=== PATIENT | female | born 1990 | race Caucasian/White ===

== ENCOUNTER 2018-11-11 22:46 | Emergency (ER) | payer MEDICAID, SELFPAY ==
[2018-11-11 22:46] VITALS: BP 123/81; PULSE 118; RESP 15; TEMP 36.5; BMI 23.6
--- NOTE | 2018-11-12 00:10 | ED.VIS.GEN ---
History of Present Illness Chief Complaint: Dental Informant: Patient Narrative: She stated she had a blister in her right upper molar that broke open. She does not have any major pain. She is never had that before. She is on no blood thinners. She does have a bad tooth in that region. She has not seen a dentist for it. It is no longer bleeding. She said the blister was much larger and is now very tiny. Current severity is mild. Past Medical History - Allergies and Home Meds Allergies/Adverse Reactions: Allergies No Known Allergies Allergy (Verified 12/15/14 11:28) Primary Care Physician: Care Physician,No Primary [Primary Care Provider] - Prior records reviewed: Yes Past Medical History: None Surgical History: noncontributory, - - 2 C-sections Lives: With Family Smoking Status: Former smoker Alcohol: None Drugs: None Review of Systems General: Denies: Chills, Fever, Sweats Eyes: Denies: Visual changes - bilaterally, Diplopia ENT: Reports: - - HPI. Denies: Rhinorrhea, Sore throat Cardiovascular: Denies: Chest pain, Palpitations Respiratory: Denies: Dyspnea, Cough, Dyspnea on exertion Gastrointestinal: Denies: Abdominal pain, Nausea, Vomiting, Diarrhea, Melena, Hematochezia Genitourinary: Denies: Dysuria, Hematuria, Frequency Musculoskeletal: Denies: Back pain, Extremity Pain Skin: Denies: Rash, Wounds Neurological: Denies: Headache, Weakness, Numbness Physical Exam Vital Signs/Narrative: Vital Signs Temp Pulse Resp BP 11/11/18 22:46 97.7 F L 118 H 15 123/81 H General: Well nourished, Well developed, No Acute Distress Head: Normocephalic, Atraumatic Eyes: Perrl, EOMI ENT: Moist mucous membranes, No rhinorrhea, - - Internal exam. Her right upper posterior molar had a very small blood blister that is completely resolved. It is likely secondary to an infected tooth. There is no abscess to the gum. It is mildly tender. No active bleeding. Neck: Supple, Nontender Cardiovascular: Regular rate, Regular rhythm, No murmurs Respiratory: No distress, CTA bilaterally, Chest nontender Abdomen: Soft, Nontender, Nondistended, Normal bowel sounds Back: Nontender, Normal Inspection Extremities: Nontender, No edema Skin: Normal color, No rash Neurological: Alert, Oriented x3, Cranial nerves II-XII grossly intact, Normal Strength, Normal Sensation Psychological: Normal affect, Normal Mood Diagnostic/Tx/Re-eval - Medical Decision Making Patient reassured. At this time she likely has a pulpitis with a blood blister. She will follow-up with dentistry. She will use pressure if it bleeds again. Started on amoxicillin ED Disposition - Plan for ED Patient: Disposition: Home or Assisted Living Diagnosis: Periapical abscess Instructions: Dental Abscess Prescriptions: Amoxicillin 500 mg PO TID #21 tab Referrals: Care Physician,No Primary [Primary Care Provider] - Ritesh Lyons DO [NON CLINICAL AFFILIATE] -
[2018-11-12] MEDS: AMOXICILLIN 500 MG CAPSULE PO (00:24)
[2018-11-12 00:28] VITALS: BP 123/68; PULSE 78; RESP 16; O2SAT 98
== END 2018-11-12 00:29 | disposition home or self-care (01) ==
PROVIDERS: Emergency Provider Emergency Medicine
DX: K04.7 Periapical abscess without sinus (principal); Z87.891 Personal history of nicotine dependence
CPT/HCPCS: 99283

== ENCOUNTER → 2019-09-27 | Outpatient (CLI) | payer OTHER, MEDICAID, SELFPAY ==
--- NOTE | 2019-09-27 13:14 | US_ITS ---
STUDY: ULTRASOUND OF THE FEMALE PELVIS - COMPLETE REASON FOR EXAM: Female, 29 years old. IUD PLACEMENT - PT UNABLE TO FIND STRING LMP: 09/11/2019 TECHNIQUE: Transabdominal TECHNICAL QUALITY: Adequate. COMPARISON: None. FINDINGS: The uterus is anteverted and is in a midline position. The uterus measures 8.3 x 5.3 x 3.1 cm. Normal uterine cervix. The endometrium measures 2.4 mm in thickness, and is hyperechoic. There is no demonstrated endometrial mass. There is no demonstrated myometrial mass. I.U.D. - The patient does have an I.U.D. IUD noted in satisfactory position The right ovary is visualized. The right ovary measures 2.4 x 1.7 x 1.4 cm. There is no right ovarian cyst or ovarian mass. There is no visualized right adnexal mass or complex lesion. There is normal arterial and normal venous vascularity. The left ovary is visualized. The left ovary measures 2.3 x 2.1 x 2.9 cm. There is no left ovarian cyst or ovarian mass. There is no visualized left adnexal mass or complex lesion. There is normal arterial and normal venous vascularity. There is no fluid in the cul-de-sac. The bladder is sonographically normal US/Pelvic (Non ) IMPRESSION: Normal female pelvis. IUD noted in satisfactory position Electronically Signed: Louis Armstrong MD at 14:56 EST , Service support ,
== END | disposition home or self-care (01) ==
PROVIDERS: Referring Provider Obstetrics & Gynecology; Visit Provider Obstetrics & Gynecology
DX: Z30.431 Encounter for routine checking of intrauterine contraceptive device (principal)
CPT/HCPCS: 76856

== ENCOUNTER → 2019-10-02 | Outpatient (CLI) | payer OTHER, MEDICAID, SELFPAY | END | disposition home or self-care (01) | PROVIDERS: Referring Provider Obstetrics & Gynecology; Visit Provider Obstetrics & Gynecology | DX: Z12.4 Encounter for screening for malignant neoplasm of cervix (principal); Z11.3 Encounter for screening for infections with a predominantly sexual mode of transmission ==

== ENCOUNTER → 2020-01-03 | Outpatient (CLI) | payer OTHER, MEDICAID, SELFPAY ==
[2020-01-10 00:32] LABS: HPV Reflexed? NOT INDICATED
== END | disposition home or self-care (01) ==
LOC: LABSPEC 14:01
PROVIDERS: Referring Provider Obstetrics & Gynecology; Visit Provider Obstetrics & Gynecology
DX: R87.615 Unsatisfactory cytologic smear of cervix (principal)
CPT/HCPCS: 88175; G0145

== ENCOUNTER 2020-02-11 17:27 | Emergency (ER) | payer MEDICAID, SELFPAY ==
[2020-02-11 17:29] VITALS: BP 119/81; PULSE 100; RESP 16; TEMP 36.4; O2SAT 98; BMI 24.7
--- NOTE | 2020-02-11 18:27 | US_ITS ---
STUDY: ABDOMINAL ULTRASOUND - RIGHT UPPER QUADRANT REASON FOR VISIT: Female, 29 years old. Right upper quadrant pain TECHNIQUE: Ultrasound evaluation of the right upper quadrant was performed with real-time and static york-scale imaging. TECHNICAL QUALITY: Adequate. COMPARISON: None. FINDINGS: Liver: The liver measures 17.5 cm. There is normal echogenicity of the liver. The bile ducts are within normal limits. There is hepatic color flow. The direction of portal flow is hepatopetal. There is no demonstrated mass lesion. Gallbladder: Normal distended gallbladder. The gallbladder wall measures 3 mm. There is a negative sonographic Allen''s sign. There is no pericholecystic fluid. There are multiple echogenic structures within the gallbladder, consistent with multiple gallstones. Common Bile Duct (C.B.D.): The common bile duct measures 3 mm. Pancreas: Normal size of the head, body and tail of the pancreas. There is normal echogenicity of the pancreas. There is no demonstrated pancreatic mass or cyst. Right Kidney: Normal size of the right kidney. The right kidney measures 10.5 cm. Normal renal cortex. There is no demonstrated renal mass or cyst. There is no right hydronephrosis. US/Gallbladder IMPRESSION: Cholelithiasis without sonographic evidence of acute cholecystitis. Electronically Signed: Steve Hastings, at 20:05 EDT Tel , Service support ,
--- NOTE | 2020-02-11 18:28 | ED.DCSUM_ITS ---
History of Present Illness Chief Complaint: Abd Pain Informant: Patient - Abdominal Pain/Flank Pain Onset: Weeks - 1 Context: Gradual Onset Timing: Continuous, Waxes and wanes Quality: Aching, Cramping Location: Epigastric, RUQ Current Severity: Moderate Maximum Severity: Severe Worsened by: Food Relieved by: - - after BM sometimes - Nausea/Vomiting/Emesis GI Symptom: Negative for: Nausea, Vomiting - Diarrhea/Melena/Hematochezia GI Symptom: Negative for: Diarrhea, Melena, Hematochezia Associated Symptoms: Negative for: Dysuria, Frequency, Hematuria, Urgency Narrative: Patient has been having waxing and waning abdominal discomfort for the past week, states that sometimes it is worse 1 or 2 hours after eating and sometimes gets better after she has a bowel movement which are otherwise normal. She has not been constipated but tried some laxatives to see if maybe that would clean things out and help but it has not seemed to make a difference. She denies any itching, fever, jaundice. The discomfort seems to mostly be epigastric and right upper quadrant. She states she has had an unusually long menstrual cycle that has lasted 8 days and currently still present and started around the same time and started a week early compared with usual. She denies any other vaginal discharge and the bleeding is not severe. Past Medical History - Allergies and Home Meds Allergies/Adverse Reactions: Allergies No Known Allergies Allergy (Verified 02/11/20 17:31) Primary Care Physician: Gatito Aceves MD [STAFF PHYSICIAN] - (call for appt) Past Medical History: None Surgical History: noncontributory, - - 2 C-sections Smoking Status: Former smoker Drugs: None - Family History Maternal Family History: Reports: - - gallstones -- mother Review of Systems General: Denies: Chills, Fever, Sweats Eyes: Denies: Visual changes - bilaterally, Diplopia ENT: Denies: Rhinorrhea, Sore throat Cardiovascular: Denies: Chest pain, Palpitations Respiratory: Denies: Dyspnea, Cough, Dyspnea on exertion Gastrointestinal: Reports: Abdominal pain. Denies: Nausea, Vomiting, Diarrhea, Melena, Hematochezia Genitourinary: Denies: Dysuria, Hematuria, Frequency Musculoskeletal: Reports: Back pain. Denies: Neck pain, Swelling, Extremity Pain Skin: Denies: Rash, Wounds Neurological: Denies: Headache, Weakness, Numbness Physical Exam Vital Signs/Narrative: Vital Signs Temp Pulse Resp BP Pulse Ox 02/11/20 17:29 97.6 F L 100 16 119/81 H 98 Inital Vital Signs reviewed: Yes General: Well nourished, Well developed, No Acute Distress Head: Normocephalic, Atraumatic Eyes: Perrl, EOMI ENT: Moist mucous membranes, No rhinorrhea Neck: Supple, Nontender Cardiovascular: Regular rate, Regular rhythm, No murmurs Respiratory: No distress, CTA bilaterally, Chest nontender Abdomen: Soft, Nondistended, Normal bowel sounds, No masses, Tender. Negative for: Guarding, Rebound tenderness, Allen's sign Back: Nontender, Normal Inspection. Negative for: CVA tenderness Extremities: Nontender, No edema. Negative for: Calf Tenderness Skin: Normal color, No rash, No Trauma Neurological: Alert, Oriented x3, Cranial nerves II-XII grossly intact, Normal Strength, Normal Sensation Psychological: Normal affect, Normal Mood Diagnostic/Tx/Re-eval Impressions Gallbladder Ultrasound 02/11/20 18:27 IMPRESSION: Cholelithiasis without sonographic evidence of acute cholecystitis. Electronically Signed: Steve Venkata, at 20:05 EDT Tel , Service support , 02/11/20 18:27 Gallbladder [US] Stat Laboratory Results 02/11/20 02/11/20 02/11/20 19:15 19:15 19:15 WBC 9.1 RBC 3.92 L Hgb 11.8 L Hct 36.4 L MCV 92.9 MCH 30.1 MCHC 32.4 RDW Std Deviation 41.9 RDW Coeff of Christiano 12.2 Plt Count 311 MPV 10.6 Immature Gran % (Auto) 0.300 Neut % (Auto) 79.3 H Lymph % (Auto) 12.4 L Bull[place] % (Auto) 6.5 Eos % (Auto) 1.1 Baso % (Auto) 0.4 Absolute Neuts (auto) 7.2 Absolute Lymphs (auto) 1.13 Nucleated RBC % 0 Sodium 140 Potassium 3.5 Chloride 105 Carbon Dioxide 28.0 Anion Gap 7 BUN 6 L Creatinine 0.95 Estim Creat Clear Calc 69.73 Est GFR (MDRD) Af Amer 90 Est GFR (MDRD) Non-Af 74 BUN/Creatinine Ratio 6.3 L Glucose 86 Calcium 9.3 Total Bilirubin 0.30 AST 18 ALT 17 Alkaline Phosphatase 69 Total Protein 7.9 Albumin 3.5 Globulin 4.4 H Albumin/Globulin Ratio 0.8 L Lipase 77 Serum , Qual NEGATIVE Urine Color Urine Clarity Urine pH Ur Specific [place] Urine Protein Urine Glucose (UA) Urine Ketones Urine Occult Blood Urine Nitrite Urine Bilirubin Urine Urobilinogen Ur Leukocyte Esterase Urine RBC Urine WBC Ur Squamous Epith Cells Urine Bacteria Urine Mucus 02/11/20 19:15 WBC RBC Hgb Hct MCV MCH MCHC RDW Std Deviation RDW Coeff of Christiano Plt Count MPV Immature Gran % (Auto) Neut % (Auto) Lymph % (Auto) [place] % (Auto) Eos % (Auto) Baso % (Auto) Absolute Neuts (auto) Absolute Lymphs (auto) Nucleated RBC % Sodium Potassium Chloride Carbon Dioxide Anion Gap BUN Creatinine Estim Creat Clear Calc Est GFR (MDRD) Af Amer Est GFR (MDRD) Non-Af BUN/Creatinine Ratio Glucose Calcium Total Bilirubin AST ALT Alkaline Phosphatase Total Protein Albumin Globulin Albumin/Globulin Ratio Lipase Serum , Qual Urine Color Yellow Urine Clarity Sl. Cloudy Urine pH 8.0 Ur Specific [place] 1.010 Urine Protein Negative Urine Glucose (UA) Normal Urine Ketones Negative Urine Occult Blood Negative Urine Nitrite Negative Urine Bilirubin Negative Urine Urobilinogen Normal Ur Leukocyte Esterase 25 H Urine RBC 0 SEEN Urine WBC 0-5 SEEN Ur Squamous Epith Cells 0-5 SEEN Urine Bacteria 0 SEEN Urine Mucus 0 SEEN - Medical Decision Making Patient declined the Toradol that was ordered, and did not want anything for pain, she was gradually feeling better. Her work-up shows gallstones, but she has no signs of acute cholecystitis on the imaging, and her labs are normal including liver enzymes and lipase. Her symptoms are likely due to the gallstones. I discussed with Dr. Aceves, who is happy to follow-up with her as an outpatient. I gave her instructions regarding nonfat diet as much as possible, she is comfortable with that plan following up. ED Disposition - Plan for ED Patient: Disposition: Home or Assisted Living Diagnosis: Biliary colic, Cholelithiasis Instructions: ED Low Fat Diet, ED Gallstones with Biliary Colic Referrals: Gatito Aceves MD [STAFF PHYSICIAN] - As soon as possible (call in a.m. for appt)
[2020-02-11 19:20] LABS: Bacteria 0 SEEN /hpf (None Seen); Mucous, Urine 0 SEEN /hpf (<or=2+); Red Blood Cells-Urine 0 SEEN /hpf (0-5)
[2020-02-11 19:24] LABS: Absolute Lymphocyte Count 1.13 X10^3/uL (0.83-4.51); Absolute Neutrophil Count 7.2 X10^3/uL (2.0-7.7); Basophil# 0.04 X10^3/uL; Basophil% 0.4 % (0-1); Eosinophils% 1.1 % (0-5); Hematocrit 36.4 % (37-47); Hemoglobin 11.8 g/dL (12.0-15.0); Lymphocyte # 1.13 X10^3/ul (4.0); Lymphocyte % 12.4 % (19-41); Mean Corp Hgb Conc 32.4 g/dL (32-36); Mean Corpuscular Hgb 30.1 pg (27.0-32.0); Mean Corpuscular Volume 92.9 fL (81-99); Mean Platelet Vol. 10.6 fl (6.2-12.0); Monocyte# 0.59 X10^3/uL; Monocyte% 6.5 % (0-10); NRBC Flagged by Analyzer 0 % (0-5); Neutrophil # 7.22 X10^3/uL (2.7-7.7); Neutrophil % 79.3 % (47-70); Platelet Count 311 K/mm3 (150-450); RBC Distribution Width CV 12.2 % (11.6-14.6); RBC Distribution Width SD 41.9 fl (35.1-43.9); Red Blood Count 3.92 M/mm3 (4.2-5.4); White Blood Count 9.1 K/mm3 (4.4-11.0)
[2020-02-11 19:25] LABS: Color, Urine Yellow (Yellow); Glucose, Dipstick Normal (Normal); Ketone-Dipstick Negative (Negative); Leukocyte Esterase-Dipstick 25 /ul (Negative); Nitrite-Dipstick Negative (Negative); Occult Blood-Urine Negative /ul (Negative); Protein-Dipstick Negative (Negative); Urine Bilirubin Dipstick Negative (Negative); Urine Clarity Sl. Cloudy (Clear); Urine Urobilinogen Normal (Normal)
[2020-02-11 19:31] LABS: Squamous Epithelial Cells - UA 0-5 SEEN /hpf (5-10); White Blood Cells 0-5 SEEN /hpf (0-5)
[2020-02-11 19:32] LABS: Internal QC Validated? YES +Cl - CLEAR BKGD; Pregnancy, Serum, hCG Quali. NEGATIVE Negative
[2020-02-11 19:39] LABS: ALB/GLOB Ratio 0.8 RATIO (0.9-2.4); AST(SGOT) 18 U/L (15-37); Alanine Aminotransfer ALT/SGPT 17 U/L (13-56); Albumin, Serum 3.5 g/dL (3.2-5.0); Alkaline Phosphatase 69 U/L (45-117); Anion Gap 7 (5-15); BUN 6 mg/dL (7-18); BUN/Creat Ratio 6.3 RATIO (10-20); Calcium,Total 9.3 mg/dL (8.5-10.1); Chloride 105 mmol/L (98-107); Creatinine, Serum 0.95 mg/dL (0.55-1.02); EST Glomerular Filtration Rate 74 mL/min (>60); Est Glom Filt Rate - Afr Amer 90 mL/min (>60); Estimated Creatinine Clearance 69.73 ml/min; Globulin 4.4 g/dL (2.2-4.2); Glucose 86 mg/dL (74-106); Lipase 77 U/L (73-393); Potassium 3.5 mmol/L (3.5-5.1); Protein, Total 7.9 g/dL (6.4-8.2); Sodium Level 140 mmol/L (136-145)
[2020-02-11 21:50] VITALS: BP 108/67; PULSE 91; RESP 16; O2SAT 97
== END 2020-02-11 21:50 | disposition home or self-care (01) ==
PROVIDERS: Emergency Provider Emergency Medicine
DX: K80.70 Calculus of gallbladder and bile duct without cholecystitis without obstruction (principal); Z87.891 Personal history of nicotine dependence
CPT/HCPCS: 76705; 80053; 81001; 83690; 84703; 85025; 99283; A4216

== ENCOUNTER 2020-02-13 07:29 | Inpatient (IN) | payer OTHER, MEDICAID, SELFPAY ==
[2020-02-12 14:10] VITALS: BMI 24.7
[2020-02-13] VITALS (9 sets, daily range): BP systolic 95–111; BP diastolic 56–72; PULSE 72–92; RESP 16–18; TEMP 36.3–37.2; O2SAT 96–100; BMI 24.6; BMI 25.9
--- NOTE | 2020-02-13 07:57 | ED.VISSUMM ---
- ER Visit Summary Date of Service: 02/13/20 Chief Complaint: Abdominal pain History of Present Illness: The patient is a 29 F who presents with ongoing abdominal pain. She was seen in this ED 2 days ago and diagnosed with gallstones. She did not have cholecystitis. She was referred to surgery for follow-up and surgery with Dr. Aceves on February 26. She was unable to sleep last night. She was having diffuse abdominal pain. The pain is currently in her right upper quadrant. No fevers, jaundice, or other new issues. Physical Examination: Afebrile and vital signs unremarkable. Patient appears uncomfortable. Right upper quadrant tender to palpation. No guarding or rebound. No jaundice. Otherwise exam unremarkable. Test Results: We will recheck CBC, CMP, lipase, coags. She had a negative serum test on February 10, 2 days ago. This was not repeated. Emergency Department Course and Treatment: Labs ordered as above. Patient treated with morphine and Zofran while awaiting results. She also received IV fluids and was made n.p.o. I contacted Dr. Aceves to let him know she was in the ED. He would like a call back after the labs result. She may need additional imaging pending the results of the labs. CT showed no evidence of stones or cholecystitis. nothing else to explain her pain. she is having continued pain. Dr. Aceves evaluated the patient and will admit for further care. Treatment Plan: As above Disposition: Admit Impression: Abdominal pain This note was generated with picsell dictation software. It may contain incorrect words, spelling, and punctuation that were not noted in review of the chart prior to signing ED Disposition - Plan for ED Patient: Referrals: Care Physician,No Primary [Primary Care Provider] -
[2020-02-13 08:12] LABS: Absolute Lymphocyte Count 1.07 X10^3/uL (0.83-4.51); Basophil# 0.03 X10^3/uL; Basophil% 0.3 % (0-1); Eosinophil# 0.07 X10^3/uL; Eosinophils% 0.8 % (0-5); Hemoglobin 11.4 g/dL (12.0-15.0); Lymphocyte # 1.07 X10^3/ul (4.0); Mean Corp Hgb Conc 32.6 g/dL (32-36); Mean Corpuscular Hgb 30.3 pg (27.0-32.0); Mean Corpuscular Volume 93.1 fL (81-99); Mean Platelet Vol. 10.1 fl (6.2-12.0); Monocyte# 0.71 X10^3/uL; NRBC Flagged by Analyzer 0 % (0-5); Neutrophil # 6.95 X10^3/uL (2.7-7.7); Neutrophil % 78.3 % (47-70); Platelet Count 340 K/mm3 (150-450); RBC Distribution Width CV 12.3 % (11.6-14.6); RBC Distribution Width SD 42.4 fl (35.1-43.9); Red Blood Count 3.76 M/mm3 (4.2-5.4); White Blood Count 8.9 K/mm3 (4.4-11.0)
[2020-02-13] MEDS: Ondansetron 4 MG/2 ML Vial IV ×2 (08:14→17:15)
[2020-02-13] MEDS: Morphine 4 MG/ML Syringe IV ×2 (08:15→10:34)
[2020-02-13] MEDS: 0.9% Normal Saline 1,000 ML 1000 ML IV (08:15)
[2020-02-13 08:30] LABS: ALB/GLOB Ratio 0.7 RATIO (0.9-2.4); AST(SGOT) 13 U/L (15-37); Alanine Aminotransfer ALT/SGPT 15 U/L (13-56); Albumin, Serum 3.4 g/dL (3.2-5.0); Alkaline Phosphatase 69 U/L (45-117); Anion Gap 7 (5-15); BUN 7 mg/dL (7-18); BUN/Creat Ratio 7.9 RATIO (10-20); Calcium,Total 9.4 mg/dL (8.5-10.1); Chloride 104 mmol/L (98-107); Creatinine, Serum 0.89 mg/dL (0.55-1.02); EST Glomerular Filtration Rate 80 mL/min (>60); Est Glom Filt Rate - Afr Amer 97 mL/min (>60); Estimated Creatinine Clearance 74.43 ml/min; Globulin 4.8 g/dL (2.2-4.2); Glucose 91 mg/dL (74-106); International Normalized Ratio 1.1; Lipase 88 U/L (73-393); Partial Thromboplast Time 33.5 Seconds (24.1-36.2); Potassium 3.8 mmol/L (3.5-5.1); Protein, Total 8.2 g/dL (6.4-8.2); Prothrombin Time (Protime)PT. 13.6 SECONDS (11.7-14.9); Sodium Level 138 mmol/L (136-145)
--- NOTE | 2020-02-13 09:03 | CT_ITS ---
STUDY: CT ABDOMEN AND PELVIS WITH CONTRAST REASON FOR EXAM: Female, 29 years old. WORSENING ABD PAIN, KNOWN GALLSTONES, SCHEDULED FOR SURG FEBRUARY 26, HAS IUD RADIATION DOSAGE (If Supplied By Facility): CTDIvol = ( 7.16 ) mGy, DLP = ( 367.51 ) mGycm TECHNIQUE: Transaxial images were obtained from the dome of the diaphragm to the symphysis pubis without oral contrast. IV 100mL Isovue-300 was administered. Sagittal and coronal images were reconstructed. Individualized dose optimization techniques were used for this CT. COMPARISON: Ultrasound from 02/11/2020 FINDINGS: The visualized lung bases are unremarkable. The visualized portions of the heart are within normal limits. Normal liver. Normal gallbladder and extrahepatic biliary system. The recent ultrasound showed evidence of gallstones but there are no demonstrated radiopaque gallstones. Normal spleen. Normal pancreas. Normal bilateral adrenal glands. Normal right kidney. Normal left kidney. Normal visualized stomach. Normal small intestine. Retained stool noted in the colon. There is non-visualization of the appendix. Normal abdominal aorta. Normal inferior vena cava. Normal retroperitoneum. Normal urinary bladder. Uterus contains an IUD. There are bilateral physiologic ovarian cysts. Normal abdominal wall. Normal osseous structures. CT/Abdomen/Pelvis WITH Contrast IMPRESSION: Although the recent ultrasound showed evidence of gallstones, no radiopaque gallstones are present on this CT. Retained stool throughout the colon IUD noted in the uterus. Electronically Signed: Louis Armstrong MD at 9:44 EDT , Service support ,
--- NOTE | 2020-02-13 10:45 | PCM.HP.BLA ---
Problem List (1) Cholelithiasis Status: Acute Qualifiers: Cholelithiasis location: gallbladder Cholecystitis presence: with cholecystitis Cholecystitis acuity: acute Biliary obstruction: without biliary obstruction Qualified Code(s): K80.00 - Calculus of gallbladder with acute cholecystitis without obstruction History and Physical Date of Admission: 02/13/20 [facility] [address] [place] [address] OFFICE VISIT Date of Service: 02/12/20 MR#: [id number] Acct: [id number] Name: JOE MCGRAW Rep #: [id number] : 1990 Provider: Dr. Gatito Aceves MD Age/Sex: 29/F Location: [facility] Status: Signed Intake Vital Signs 02/12/20 Height 5 ft 2 in 02/12/20 Weight: 134 lb 02/12/20 BMI 24.5 02/12/20 BP 100/62 02/12/20 Blood Pressure Location Rt brachial 02/12/20 Position Sitting 02/12/20 Respiration 18 02/12/20 Pulse 104 H 02/12/20 Pulse Source Monitor 02/12/20 Temp 98.2 F 02/12/20 Temp Source Temporal 02/12/20 Pulse Oximetry (%) 982 02/12/20 Oxygen Delivery Method room air Intake Visit Reasons: ER F/U 02/10 Gall Stones Chief Complaint: Cholelithiasis Power Distributor Required: No Is patient in pain?: No Allergies No Known Allergies Allergy (Verified 02/12/20 14:09) Medications NK 02/11/20 [History Confirmed 02/13/20] [facility] Medical History delivery delivered (Acute) 39 weeks gestation of (Acute) Infection associated with retained intrauterine contraceptive device (Acute) Cholelithiasis (Acute) Surgical History History of (Acute) Family History Grandfather Colon cancer Social History (Updated 02/13/20 @ 10:[address] Gatito Aceves MD) Smoking Status: Former smoker alcohol intake: never substance use type: does not use HPI HPI Surgical H&P: Yes HPI: JOE MCGRAW, is a 29 F who presents to the office today for Evaluation of symptomatic cholelithiasis. Patient has been having waxing and waning abdominal discomfort for the past week, states that sometimes it is worse 1 or 2 hours after eating and sometimes gets better after she has a bowel movement which are otherwise normal. She has not been constipated but tried some laxatives to see if maybe that would clean things out and help but it has not seemed to make a difference. She denies any itching, fever, jaundice. The discomfort seems to mostly be epigastric and right upper quadrant. She states she has had an unusually long menstrual cycle that has lasted 8 days and currently still present and started around the same time and started a week early compared with usual. She denies any other vaginal discharge and the bleeding is not severe. She re-presented to the emergency department today with worsening right upper quadrant abdominal pain. Her labs were still normal. I obtained a CAT scan of the abdomen and pelvis this did not show any signs of liver pathology and her gallbladder was slightly distended. ROS General General: No weight change, appetite, fatigue, colon cancer, breast cancer or weakness HEENT HEENT: No difficulty swallowing, eye injury, eye surgery, swollen glands or hoarseness Endo Endocrine: No thyroid disease, diabetes mellitus, thyroid cancer, Hair loss, heat intolerance or cold intolerance Skin Skin: No rash or changing moles Breast Breast: No left breast lump, right breast lump, nipple discharge, breast pain, abnormal mammogram, abnormal US or breast enlargement Musc Musculoskeletal: No back problems, arthritis, rheumatoid arthritis, gout or joint pain Cardio Cardiovascular: No murmur, pacemaker, heart disease, atrial fibrillation, high blood pressure, heart attack, heart stent, palpitations, shortness of breat with exertion or chest pain Psych Psychiatric: No depression, anxiety or hearing voices Resp Respiratory: No shortness of breath, No sleep apnea, No cough, No COPD, No asthma, No emphysema, No wheezing Gastro Gastrointestinal: Yes abdominal pain, No nausea or vomiting, No diarrhea, No constipation, No blood in stool, No acid reflux, No hemorrhoids, No ulcers, Yes gallbladder problem, No black,tarry stools Jimmy Hematologic: No blood thinners, No blood disorders, No bleeding, Yes anemia, No blood clots Neuro Neurologic: No system reviewed and no additional complaints, except as docu, No as per HPI, No abnormal walking, No abnormal hearing, No abnormal movements, No abnormal speech, No behavioral changes, No burning sensations, No confusion, No seizure-like activity, No unsteadiness, No dizziness, No localized weakness, No frequent falls, No headache(s), No lack of coordination, No loss of vision, No memory loss, No numbness, No other visual disturbances, No radiating pain, No restless legs, No sensory deficit, No fainting, No tingling, No tremor(s), No weakness, No other Exam Const General: no acute distress, well developed, well hydrated Orientation: oriented to person, oriented to place, oriented to time [facility] Head: normocephalic, atraumatic Ears: external ears normal Mouth: moist mucous membranes Eyes Sclera: sclerae normal Pupils: normal by confrontation Neck Neck: no lymphadenopathy noted Neck mass: No Thyroid: thyroid normal, symmetrical Chest Chest palpation & inspection: normal inspection of the chest Breast Palpation: No nipple discharge Resp Effort & Inspection: normal respiratory effort Auscultation: clear to auscultation bilaterally Percussion: percussion normal Cardio Rate: regular rate Rhythm: regular rhythm Heart Sounds: no murmurs GI Palpation: soft, no hepatosplenomegaly, no masses, tenderness is worse today. Auscultation: normal bowel sounds Rectal Exam: other Other: Rectal exam deferred. Extrem General: normal to inspection, no clubbing, cyanosis or edema Assessment & Plan Problems 1. Calculus of gallbladder with acute on chronic cholecystitis without obstruction K80.12 2. Abdominal pain, RUQ R10.11 Plan Reviewed the anatomy with the patient and discussed the procedure: laparoscopic cholecystectomy with possible cholangiograms, possible open. Review risks including but not limited to bleeding, infection, hernia, bile leak, retained gallstones requiring another procedure ERCP- Endoscopic Retrograde Cholangiopancreatography, injury to another organ (bile ducts, common bile duct, small bowel, etc.) and conversion to an open procedure. All questions were answered. I believe she probably have hydrops of the gallbladder. We are going to admit her to the hospital and I will do her surgery tomorrow. Coding Level of Care Code Off vis,new,level 3 Diagnoses Calculus of gallbladder with acute on chronic cholecystitis without obstruction K80.12 ??Cholelithiasis location: gallbladder ??Cholecystitis acuity: acute and chronic Abdominal pain, RUQ R10.11 Inpatient E&M: 28965 Init Hosp L3
[2020-02-13] MEDS: Lactated Ringers 1,000 ML 50 ML IV (11:34)
[2020-02-13] MEDS: 0.9% Saline Lock 10 ML Syringe IV (17:07)
[2020-02-13] MEDS: HYDROmorphone 1 MG/ML Syringe IV (17:07)
--- NOTE | 2020-02-13 17:08 | NURSING ---
BP is now 106/66, Hr 92. This nurse will give dilaudid now.
[2020-02-13] MEDS: proMETHazine 25 MG/ML Syringe 12.5 MG IV (20:15)
[2020-02-13] MEDS: Acetaminophen 325 MG Tablet 650 MG PO (20:15)
[2020-02-13] MEDS: Morphine 2 MG/ML Syringe IV (21:22)
[2020-02-14] VITALS (18 sets, daily range): BP systolic 84–120; BP diastolic 48–85; PULSE 65–98; RESP 14–18; TEMP 36.5–37.1; O2SAT 90–100; BMI 25.9
[2020-02-14] MEDS: Morphine 2 MG/ML Syringe IV ×4 (00:37→21:40)
[2020-02-14 04:26] LABS: Internal QC Validated? YES +Cl - CLEAR BKGD; Pregnancy, Urine Negative Negative
--- NOTE | 2020-02-14 05:55 | EKG12_ITS ---
Test Reason : AM EKG Blood Pressure : / mmHG Vent. Rate : 070 BPM Atrial Rate : 070 BPM P-R Int : 146 ms QRS Dur : 096 ms QT Int : 380 ms P-R-T Axes : 060 082 020 degrees QTc Int : 410 ms Normal sinus rhythm with sinus arrhythmia Nonspecific T wave abnormality Abnormal ECG Confirmed by LETICIA NEGRON, AL ([id number]), editorial project manager YAIMA MASON ([id number]) on 02/18/2020 11:17:53 AM Referred By: TERRI Confirmed By:AL KELLY MD
[2020-02-14] MEDS: Lactated Ringers 1,000 ML 150 ML IV (06:49)
[2020-02-14] MEDS: Acetaminophen 325 MG Tablet 650 MG PO ×2 (06:53→18:52)
[2020-02-14] MEDS: Lactated Ringers 1,000 ML 999 ML IV (07:07)
[2020-02-14 07:53] LABS: Mucous, Urine 0 SEEN /hpf (<or=2+); Red Blood Cells-Urine 0 SEEN /hpf (0-5)
[2020-02-14 07:57] LABS: Color, Urine Straw (Yellow); Glucose, Dipstick Normal (Normal); Ketone-Dipstick Negative (Negative); Leukocyte Esterase-Dipstick 25 /ul (Negative); Nitrite-Dipstick Negative (Negative); Occult Blood-Urine Negative /ul (Negative); Protein-Dipstick Negative (Negative); Urine Bilirubin Dipstick Negative (Negative); Urine Clarity Clear (Clear); Urine Urobilinogen Normal (Normal)
[2020-02-14 08:06] LABS: White Blood Cells 0-5 SEEN /hpf (0-5)
[2020-02-14 08:07] LABS: Bacteria 1+ /hpf (None Seen); Squamous Epithelial Cells - UA 0-5 SEEN /hpf (5-10)
--- NOTE | 2020-02-14 08:31 | NURSING ---
BP 107/68 after bolus and prior to IV morphine. pt denies feeling dizzy. rating pain 7/10.
[2020-02-14] MEDS: 0.9% Saline Lock 10 ML Syringe IV (08:32)
--- NOTE | 2020-02-14 11:20 | GALL_PTH ---
PATIENT: JOE MCGRAW LOC: MS3 U#:[id number] AGE/SX: 29/F ROOM: MS312 RE02/13/[address]: Dr. Gatito Aceves MD : 1990 BED: 1 DIS: 02/15/2020 SPEC #: [id number] RECD: 02/14/20 13:01 STATUS: MADELEINE REQ #: [id number] TONY: 02/14/20 11:[address]: Gatito Aceves DEPT: SURGICAL PATHOLOGY RECD BY: Júnior Siddiqi ENTERED: 02/17/20 08:35 SP TYPE: ANGEL ELIZONDO DR: No Primary Care Phys Tissues: Gallbladder, NOS Procedures: Surgery Specimen Level III HEADER OPERATION: Laparoscopic cholecystectomy PRE-OP DIAGNOSIS: Calculus of gallbladder; cholecystitis; abdominal pain TISSUE SUBMITTED: Gallbladder MICROSCOPIC DIAGNOSIS Gallbladder, cholecystectomy: Chronic cholecystitis and cholelithiasis. SJ:kevon 6/30/20 MICROSCOPIC DESCRIPTION Slides are reviewed. GROSS DESCRIPTION Received is one container labeled with the patient's name and designated gallbladder. The specimen consists of a gallbladder measuring 9 cm in length and up to 4 cm in diameter. The external surface is pink-gomez, smooth and glistening for the most part. Focally it is granular, hemorrhagic and contains cautery artifact. The gallbladder contains green-yellow mucoid bile and four variable sized yellowish-green stones measuring in aggregate 2 x 1.8 x 0.5 cm and 0.5 to 1 cm in greatest dimension. The mucosa is bile-stained and without any mass lesions. The gallbladder wall measures up to 0.2 cm in thickness. Content Management Consultant sections from the gallbladder and the cystic duct are submitted in one cassette. / SJ:kevon 02/17/20 TC:3 [facility]: [id number]
--- NOTE | 2020-02-14 11:55 | PCM.OPRPT ---
Problem List (1) Cholelithiasis Status: Acute Qualifiers: Cholelithiasis location: gallbladder Cholecystitis presence: with cholecystitis Cholecystitis acuity: acute Biliary obstruction: without biliary obstruction Qualified Code(s): K80.00 - Calculus of gallbladder with acute cholecystitis without obstruction Report of Operation Date of Procedure: 02/14/20 Pre-Operative Diagnosis: Acute cholecystitis Post-Operative Diagnosis: Same Surgery/Procedure Performed:: Laparoscopic cholecystectomy Type of Anesthesia:: General Anesthesiologist: Nico Womack Specimen's removed: Gallbladder Description of Procedure: Patient was brought into the operating room. Placed in the supine position. Under excellent general endotracheal ovation the abdomen was sterilely prepped draped in usual fashion. Local was injected infraumbilically. Dissection was carried down to the fascia. The fascia grasped with a [place]. Varies needle was placed inside the abdomen. The abdomen was insufflated to 15 torr. A 10/12 trocar was placed without difficulty. Patient was placed in the head up and rotated to the left position. Subxiphoid #5 trocar was placed, inferior to this another #5 trocar was placed, laterally a #5 trocar was placed. All of these under direct visualization without injury to underlying structures. Fundus of the gallbladder was grasped retracted in cephalad direction infundibulum was grasped retracted laterally moderate amount of adhesions were dissected free of the infundibulum and cystic duct I dissected out the cystic duct placed hemoclips proximally and distally and ligated the duct. Identified the cystic artery placed hemoclips proximally and distally and ligated the artery. I deliver the gallbladder from the gallbladder bed with use of electrocautery had no spillage of bile or stones I placed a specimen a specimen bag delivered through the umbilical port without difficulty. I use electrocautery on the liver bed for good hemostasis. I turned the scope around looked into the pelvis she had moderate amount of adhesions from her previous I inspected the appendix it was normal showing no signs of acute appendicitis. The liver looked normal there were no adhesions on the liver had a good blood supply duodenum all looked normal as did the stomach. And the peritoneum itself looked fine without any signs of abnormality. Air was suctioned out the trochars were removed fascia the umbilical port was closed with a iapwaw-[id number] stitch of 0 Vicryl skin incisions were closed with subcuticular stitches of 4-0 Monocryl Steri-Strips were applied sterile dressings were applied and the patient tolerated the procedure well. - Admit VTE Documentation VTE Present on Admission: No VTE Mechan Device Prophylaxis: SCD's VTE Pharm Prophylaxis ordered?: No Reason prophylaxis not ordered:: Treatment Not Indicated [id number]: [id number] Laparoscopic cholecystectomy
[2020-02-14] MEDS: Cefazolin 1 GM/50 ML BAG IV (12:00)
[2020-02-14] MEDS: Lactated Ringers 1,000 ML 75 ML IV (12:05)
[2020-02-14] MEDS: Bupivacaine Mpf 0.5% 30 ML VIAL (12:40)
--- NOTE | 2020-02-14 13:42 | CASEMGMT ---
RN CM attempted to complete CM assessment at this time. Patient is in PACU still at this time. CM will attempt to complete assessment at later time.
[2020-02-14] MEDS: oxyCODONE 5 MG Tablet PO (18:52)
[2020-02-15 02:30] VITALS: BP 100/57; PULSE 84; RESP 16; TEMP 36.4; O2SAT 94
[2020-02-15] MEDS: Lactated Ringers 1,000 ML 75 ML IV (02:30)
[2020-02-15] MEDS: oxyCODONE 5 MG Tablet PO (02:30)
[2020-02-15] MEDS: Acetaminophen 325 MG Tablet 650 MG PO (02:30)
[2020-02-15 07:52] LABS: Absolute Lymphocyte Count 1.35 X10^3/uL (0.83-4.51); Basophil# 0.04 X10^3/uL; Basophil% 0.6 % (0-1); Eosinophil# 0.14 X10^3/uL; Hematocrit 33.2 % (37-47); Hemoglobin 9.9 g/dL (12.0-15.0); Lymphocyte # 1.35 X10^3/ul (4.0); Mean Corp Hgb Conc 29.8 g/dL (32-36); Mean Corpuscular Hgb 30.6 pg (27.0-32.0); Mean Corpuscular Volume 102.5 fL (81-99); Mean Platelet Vol. 9.9 fl (6.2-12.0); Monocyte# 0.52 X10^3/uL; Monocyte% 7.3 % (0-10); NRBC Flagged by Analyzer 0 % (0-5); Neutrophil # 5.02 X10^3/uL (2.7-7.7); Neutrophil % 70.7 % (47-70); Platelet Count 324 K/mm3 (150-450); RBC Distribution Width CV 12.6 % (11.6-14.6); RBC Distribution Width SD 47.6 fl (35.1-43.9); Red Blood Count 3.24 M/mm3 (4.2-5.4); White Blood Count 7.1 K/mm3 (4.4-11.0)
[2020-02-15 08:10] LABS: ALB/GLOB Ratio 0.6 RATIO (0.9-2.4); AST(SGOT) 311 U/L (15-37); Alanine Aminotransfer ALT/SGPT 212 U/L (13-56); Albumin, Serum 2.4 g/dL (3.2-5.0); Alkaline Phosphatase 203 U/L (45-117); Amylase 40 U/L (25-115); Anion Gap 5 (5-15); BUN 4 mg/dL (7-18); Calcium,Total 8.5 mg/dL (8.5-10.1); Chloride 102 mmol/L (98-107); EST Glomerular Filtration Rate 90 mL/min (>60); Est Glom Filt Rate - Afr Amer 109 mL/min (>60); Globulin 3.9 g/dL (2.2-4.2); Glucose 83 mg/dL (74-106); Lipase 53 U/L (73-393); Potassium 3.8 mmol/L (3.5-5.1); Protein, Total 6.3 g/dL (6.4-8.2); Sodium Level 138 mmol/L (136-145)
--- NOTE | 2020-02-15 09:04 | DCINST_ITS ---
Discharge Diet: Light diet - advance as tolerated Discharge Activity: May Not Drive - for 2-3 days or while taking narcotic pain medications., - - Do not drive, work heavy equipment or sign legal documents for 24 hours. May shower in (days): 1 - with the bandage in place. Additional Activity Instructions:: Pain medication may cause nausea. You should typically eat light foods as you take your pain medications. Pain medication may also cause constipation. If this is a problem for you, please discuss with your doctor. Call your doctor if your incision/area has: Continuous Slow Oozing, Sudden Increased Bleeding, Increased Pain/ Swelling, Increased Redness, Foul Smelling Discharge Call your doctor if you observe: Fever of 101 or Higher Suture Line Care: Avoid Pulling/Pushing, Avoid Pinching/Bending Additional Dressing/Incision Instructions:: Leave operative bandaids on for 2 days. When you remove dressing, leave Steri-Strips on until your follow-up appointment, or until the Steri-Strips fall off on their own. Allergies/Adverse Reactions: Allergies No Known Allergies Allergy (Verified 02/12/20 14:09) Medications to take at Discharge Oxycodone HCl/Acetaminophen [Percocet 5/325] 1 - 2 tab PO Q4H PRN PRN 6 Days #30 tab 02/14/20 The following prescriptions were given: Oxycodone HCl/Acetaminophen [Percocet 5/325] 1 - 2 tab PO Q4H PRN PRN 6 Days #30 tab PRN Reason: Pain Transmission Status: Received by [facility]/pharmacy #[id number] Primary Care Physician: Care Physician,No Primary [Primary Care Provider] - Test Results: Test results from this visit will be discussed in further detail at your follow- up appointment, if applicable. Please Follow Up With: Gatito Aceves MD - Please call [phone] to schedule an appointment. When: 7 days after your surgery.
--- NOTE | 2020-02-15 09:05 | PCM.PN.SRG ---
Patient Problems: Active and Suspected Problems (Last Reviewed 02/13/20 @ 10:[address] Gatito Aceves MD) Cholelithiasis (Acute) Subjective: Patient not complaining of any more right upper quadrant abdominal pain. Complaining of appropriate incisional pain Objective: Dressings are dry abdomen is soft - Physical Exam Vitals/I&O's: Vital Signs Temp Pulse Resp BP Pulse Ox 97.6 F L 84 16 100/57 L 94 02/15/20 02:30 02/15/20 02:30 02/15/20 02:30 02/15/20 02:30 02/15/20 02:30 Oxygen Flow Rate (L/min) 2 Oxygen Delivery Method Room Air Weight: 141 lb 12.116 oz Body Mass Index (BMI) 25.9 Intake and Output for Last 24 Hours 02/13/20 02/14/20 02/15/20 23:59 23:59 23:59 Intake Total 1420 / 1790 3257.5 / 3257.5 620 / 620 Output Total 700 / 1400 1300 / 1300 1600 / 1600 Balance 720 / 390 1957.5 / 1957.5 -980 / -980 Laboratory Results 02/15/20 07:10: WBC 7.1, RBC 3.24 L, Hgb 9.9 L, Hct 33.2 L, MCV 102.5 H D, MCH 30.6, MCHC 29.8 L D, RDW Std Deviation 47.6 H, RDW Coeff of Christiano 12.6, Plt Count 324, MPV 9.9, Immature Gran % (Auto) 0.400, Neut % (Auto) 70.7 H, Lymph % (Auto) 19.0, Citrus % (Auto) 7.3, Eos % (Auto) 2.0, Baso % (Auto) 0.6, Absolute Neuts (auto) 5.0, Absolute Lymphs (auto) 1.35, Nucleated RBC % 0 02/15/20 07:10: Sodium 138, Potassium 3.8, Chloride 102, Carbon Dioxide 31.0, Anion Gap 5, BUN 4 L, Creatinine 0.80, Estim Creat Clear Calc 82.80, Est GFR (MDRD) Af Amer 109, Est GFR (MDRD) Non-Af 90, BUN/Creatinine Ratio 5.0 L, Glucose 83, Calcium 8.5, Total Bilirubin 0.70, AST 311 H, ALT 212 H, Alkaline Phosphatase 203 H, Total Protein 6.3 L, Albumin 2.4 L, Globulin 3.9, Albumin/Globulin Ratio 0.6 L, Amylase 40, Lipase 53 L Current Medications Acetaminophen (Tylenol) 650 mg PO Q6H PRN PRN PRN Reason: Pain Score 1-10/10 Last Admin: 02/15/20 02:30 Dose: 650 mg Documented by: Sodium Chloride () 250 mls @ 15 mls/hr IV .[id number] PRN PRN Reason: Saline Flush Lactated Ringer's () 1,000 mls @ 75 mls/hr IV .[id number] ILYA Last Admin: 02/15/20 02:30 Dose: 75 mls/hr Documented by: Morphine Sulfate () 1 - 2 mg IV Q2H PRN PRN PRN Reason: pain 6-10/10 Last Admin: 02/14/20 21:40 Dose: 2 mg Documented by: Ondansetron HCl (Zofran) 4 mg IV Q8H PRN PRN PRN Reason: Nausea Last Admin: 02/13/20 17:15 Dose: 4 mg Documented by: Ondansetron HCl (Zofran) 4 mg IV Q6H PRN PRN PRN Reason: NAUSEA Oxycodone HCl (Oxyir) 5 - 10 mg PO Q4H PRN PRN PRN Reason: Pain Score 6-10/10 Last Admin: 02/15/20 02:30 Dose: 10 mg Documented by: Promethazine HCl (Phenergan) 12.5 mg IV Q4H PRN PRN PRN Reason: NAUSEA/VOMITING Last Admin: 02/13/20 20:15 Dose: 12.5 mg Documented by: Sodium Chloride () 10 - 40 ml IV UD PRN PRN Reason: SALINE FLUSH Last Admin: 02/14/20 08:32 Dose: 10 ml Documented by: Medical Necessity - Tobacco Use Smoking Status: Former smoker Assessment/Plan All Active Problems (Last Reviewed 02/13/20 @ 10:[address] Gatito Aceves MD) Cholelithiasis (Acute) delivery delivered (Acute) 39 weeks gestation of (Acute) Infection associated with retained intrauterine contraceptive device (Acute) Appropriate for discharge today.
[2020-02-15 09:27] VITALS: BP 104/80; PULSE 92; RESP 16; TEMP 36.9; O2SAT 95
== END 2020-02-15 10:10 | disposition home or self-care (01) | DRG 419 ==
LOC: ED 10:40 → MS3 11:25
PROVIDERS: Anesthesiology; Admitting Provider Surgery; Emergency Provider Emergency Medicine; Visit Provider Surgery
PROC: 0FT44ZZ Resection of Gallbladder, Percutaneous Endoscopic Approach (ICD-10-PCS; principal; 2020-02-14 11:00)
DX: K80.12 Calculus of gallbladder with acute and chronic cholecystitis without obstruction (principal); Z87.891 Personal history of nicotine dependence
CPT/HCPCS: 36415; 74177; 76705; 80053; 81001; 81025; 82150; 83690; 84703; 85025; 85610; 85730; 88304; 93005; 99251; 99283; 99284; J7030; J7120; Q9967; A4216; G0463; J2405

== ENCOUNTER 2020-03-14 13:24 | Emergency (ER) | payer OTHER, MEDICAID, SELFPAY ==
[2020-02-14 09:24] VITALS: BMI 25.9
[2020-03-14 13:24] VITALS: BP 150/88; PULSE 82; PULSE 89; RESP 16; RESP 17; TEMP 36.7; O2SAT 97; BMI 23.0
--- NOTE | 2020-03-14 13:44 | ED.VIS.GI ---
History of Present Illness <Fernanda Cole - Last Filed: 03/14/20 15:46> Informant: Patient - Abdominal Pain/Flank Pain Onset: Weeks - 3 weeks Context: Gradual Onset Timing: Continuous Quality: Sharp, Stabbing Location: LUQ, LLQ Current Severity: Severe Maximum Severity: Severe Worsened by: Movement Relieved by: Nothing - Nausea/Vomiting/Emesis GI Symptom: Negative for: Nausea, Vomiting - Diarrhea/Melena/Hematochezia GI Symptom: Negative for: Diarrhea, Melena, Hematochezia Associated Symptoms: Negative for: Dysuria, Frequency, Hematuria, Urgency LMP: last week Narrative: 29-year-old female presents with 3 weeks of worsening left lower quadrant and left upper quadrant abdominal pain. Patient had a laparoscopic cholecystectomy a month ago. Since that she has had worsened pain she feels bloated she is constipated she states she is only had 3 bowel movement since the procedure. She is been taking milk of magnesia without relief. No fevers. No diarrhea melena or hematochezia. No urinary symptoms. She has been able to urinate normally. Her last normal menstrual period was about a week ago. She denies any lightheadedness or dizziness, chest pain shortness of breath or cough. Prior similar symptoms: No Recent Illness/Hospitalization: Yes <Cristhian Guthrie - Last Filed: 03/14/20 18:18> Chief Complaint: Abd Pain Past Medical History - Family History Maternal Family History: Family History (Last Reviewed 02/13/20 @ 10:[address] Gatito Aceves MD) Grandfather Colon cancer <Fernanda Cole - Last Filed: 03/14/20 15:46> Prior records reviewed: Yes Past Medical History: None Surgical History: cholecystectomy, - - 2 C-sections Lives: With Family Smoking Status: Former smoker Alcohol: Occasional Drugs: None - Family History Maternal Family History: Family History (Last Reviewed 02/13/20 @ 10:[address] Gatito Aceves MD) Grandfather Colon cancer Family History: Reports: - - gallstones -- mother <VickiegalenCristhian - Last Filed: 03/14/20 18:18> - Allergies and Home Meds Allergies/Adverse Reactions: Allergies No Known Allergies Allergy (Verified 03/14/20 13:24) Primary Care Physician: Madelyn Guido MD [STAFF PHYSICIAN] - As soon as possible Review of Systems All systems negative except as indicated General: Denies: Chills, Fever, Sweats Eyes: Denies: Visual changes - bilaterally, Diplopia ENT: Denies: Rhinorrhea, Sore throat Cardiovascular: Denies: Chest pain, Palpitations Respiratory: Denies: Dyspnea, Cough, Dyspnea on exertion Gastrointestinal: Reports: Abdominal pain, Constipation. Denies: Nausea, Vomiting, Diarrhea, Melena, Hematochezia Genitourinary: Denies: Dysuria, Hematuria, Frequency Musculoskeletal: Denies: Back pain, Extremity Pain Skin: Denies: Rash, Wounds Neurological: Denies: Headache, Weakness, Numbness <Cristhian Guthrie - Last Filed: 03/14/20 18:18> Physical Exam Vital Signs/Narrative: Vital Signs Temp Pulse Resp BP Pulse Ox 03/14/20 13:24 98.1 F 82 17 150/88 H 97 <Fernanda Cole - Last Filed: 03/14/20 15:46> Vital Signs/Narrative: Vital Signs Temp Pulse Resp BP Pulse Ox 03/14/20 13:24 98.1 F 82 17 150/88 H 97 Inital Vital Signs reviewed: Yes General: Well nourished, Well developed, No Acute Distress Head: Normocephalic, Atraumatic Eyes: Perrl, EOMI ENT: Moist mucous membranes, No rhinorrhea Neck: Supple, Nontender Cardiovascular: Regular rate, Regular rhythm, No murmurs Respiratory: No distress, CTA bilaterally, Chest nontender Abdomen: Soft, Nondistended, Normal bowel sounds, Tender - LUQ and LLQ no to palpation. Negative for: Guarding, Rebound tenderness Back: Nontender, Normal Inspection Extremities: Nontender, No edema Skin: Normal color, No rash Neurological: Alert, Oriented x3, Cranial nerves II-XII grossly intact, Normal Strength, Normal Sensation Psychological: Normal affect, Normal Mood <Cristhian Guthrie - Last Filed: 03/14/20 18:18> Diagnostic/Tx/Re-eval - Medical Decision Making Patient seen and evaluated with physicians recruitment assistant. Patient was independently interviewed and examined. Patient presents with left-sided abdominal pain. No fever or chills. She does report a history of constipation but states she is been taking something to make her go regularly. She is 1 month postop cholecystectomy. Patient sitting upright in bed no acute distress. She is nontoxic-appearing. Head and neck examination normal. Heart is regular rate and rhythm. Lung sounds are clear. Abdomen is soft. She does have mid left abdominal tenderness to palpation. No guarding or rebound. Hypoactive but present bowel sounds are noted. Laboratory evaluation is largely unremarkable. Acute abdominal series does not give a specific cause for her pain, i.e. no sign of significant constipation or bowel obstruction. CT abdomen and pelvis will be pursued to rule out other etiologies. <Fernanda Cole - Last Filed: 03/14/20 15:46> - Medical Decision Making CT abdomen and pelvis demonstrated bilateral ovarian cysts and free fluid in the pelvis. No other acute findings. Repeat exam patient has improvement of her pain after a dose of Toradol. She does not have signs and symptoms that at this time are concerning for an acute ovarian torsion. I did discuss with her performing an ultrasound however she declines at this time she would like to be discharged. She will follow-up as an outpatient with her ECONOMIC DEVELOPMENT DIRECTOR. I will give her a short course of Leighton for pain. We discussed return precautions. She was agreeable with plan of care and all questions were answered. <Cristhian Guthrie - Last Filed: 03/14/20 18:18> ED Disposition <Fernanda Cole - Last Filed: 03/14/20 15:46> <Cristhian Guthrie - Last Filed: 03/14/20 18:18> - Plan for ED Patient: Disposition: Home or Assisted Living Diagnosis: Ovarian cyst, Abdominal pain Instructions: ED Cyst Ovarian Prescriptions: Hydrocodone Bitart/Apap 5-325 [Leighton 5MG-325MG] 1 tab PO Q6H PRN PRN 3 Days #10 tab PRN Reason: Pain Prescription Printed Referrals: Madelyn Guido MD [STAFF PHYSICIAN] - As soon as possible
[2020-03-14] MEDS: Ketorolac 30 MG/ML Syringe IV (13:52)
[2020-03-14] MEDS: 0.9% Normal Saline 1,000 ML 1000 ML IV (13:52)
[2020-03-14] MEDS: Ondansetron 4 MG/2 ML Vial IV (13:53)
[2020-03-14 13:58] LABS: Absolute Lymphocyte Count 2.07 X10^3/uL (0.83-4.51); Absolute Neutrophil Count 5.2 X10^3/uL (2.0-7.7); Basophil# 0.07 X10^3/uL; Basophil% 0.9 % (0-1); Eosinophil# 0.34 X10^3/uL; Eosinophils% 4.2 % (0-5); Hematocrit 38.5 % (37-47); Hemoglobin 12.5 g/dL (12.0-15.0); Lymphocyte # 2.07 X10^3/ul (4.0); Lymphocyte % 25.5 % (19-41); Mean Corp Hgb Conc 32.5 g/dL (32-36); Mean Corpuscular Hgb 29.3 pg (27.0-32.0); Mean Corpuscular Volume 90.2 fL (81-99); Mean Platelet Vol. 10.8 fl (6.2-12.0); Monocyte# 0.37 X10^3/uL; Monocyte% 4.6 % (0-10); NRBC Flagged by Analyzer 0 % (0-5); Neutrophil # 5.24 X10^3/uL (2.7-7.7); Neutrophil % 64.4 % (47-70); Platelet Count 292 K/mm3 (150-450); RBC Distribution Width CV 13.5 % (11.6-14.6); RBC Distribution Width SD 43.7 fl (35.1-43.9); Red Blood Count 4.27 M/mm3 (4.2-5.4); White Blood Count 8.1 K/mm3 (4.4-11.0)
--- NOTE | 2020-03-14 14:00 | RAD_ITS ---
STUDY: X-RAY - ACUTE ABDOMINAL SERIES REASON FOR EXAM: Female, 29 years old. PT C/O LEFT LOWER TO MID ABD PAIN THAT STARTED WEEKS AGO AND HAVE BECOME WORSE. REPORTS PAIN RADIATING INTO HER BACK TECHNIQUE: Single view of the chest. Supine, 2 view(s) of the abdomen were obtained. COMPARISON: February [address] FINDINGS: The lungs are clear and expanded. Normal size heart. Normal mediastinum and lisa. Normal visualized pulmonary arteries. Normal visualized aortic arch and descending thoracic aorta. There is a non-specific bowel gas pattern. The soft tissue structures of the abdomen and pelvis are unremarkable. IUD is in place. Normal visualized osseous structures. RAD/Acute Abdomen Inc Chest IMPRESSION: Normal x-ray examination of the chest, abdomen, and pelvis. Electronically Signed: Zuly Bates, at 14:36 EDT Tel , Service support ,
--- NOTE | 2020-03-14 15:02 | CT_ITS ---
STUDY: CT ABDOMEN AND PELVIS WITH CONTRAST REASON FOR EXAM: Female, 29 years old. Left lower quadrant pain RADIATION DOSAGE (If Supplied By Facility): CTDIvol = ( 15.77 ) mGy, DLP = ( 431.83 ) mGycm TECHNIQUE: CT images were obtained from the dome of the diaphragm to the symphysis pubis without oral contrast. IV 100mL Isovue-300 was administered. Sagittal and coronal images were reconstructed. Individualized dose optimization techniques were used for this CT. COMPARISON: 13 February 2020 FINDINGS: Lung bases are clear. Abdominal solid organs are intact. Gallbladder has been removed since one month prior with expected healing of the gallbladder fossa. There is no biliary obstruction. There is no intestinal obstruction. There is a small to moderate amount of free fluid in the pelvis. There are bilateral ovarian cysts. IUD is in place. CT/Abdomen/Pelvis W IV Cont ONLY IMPRESSION: 1. Expected appearance after recent cholecystectomy. 2. Free fluid in the pelvis, probably due to ovarian cyclical state. Refer to pelvic ultrasonography. Electronically Signed: Zuly Bates, at 17:42 EDT Tel , Service support ,
[2020-03-14 15:46] LABS: Bacteria 0 SEEN /hpf (None Seen); Mucous, Urine 0 SEEN /hpf (<or=2+); Red Blood Cells-Urine 0 SEEN /hpf (0-5)
[2020-03-14 15:47] LABS: ALB/GLOB Ratio 1.1 RATIO (0.9-2.4); AST(SGOT) 12 U/L (15-37); Alanine Aminotransfer ALT/SGPT 18 U/L (13-56); Alkaline Phosphatase 83 U/L (45-117); Anion Gap 3 (5-15); BUN 9 mg/dL (7-18); BUN/Creat Ratio 9.8 RATIO (10-20); Calcium,Total 8.7 mg/dL (8.5-10.1); Chloride 111 mmol/L (98-107); Creatinine, Serum 0.92 mg/dL (0.55-1.02); EST Glomerular Filtration Rate 77 mL/min (>60); Est Glom Filt Rate - Afr Amer 93 mL/min (>60); Globulin 3.5 g/dL (2.2-4.2); Glucose 95 mg/dL (74-106); Lipase 91 U/L (73-393); Potassium 3.6 mmol/L (3.5-5.1); Protein, Total 7.5 g/dL (6.4-8.2); Sodium Level 141 mmol/L (136-145)
[2020-03-14 15:48] LABS: Color, Urine Yellow (Yellow); Glucose, Dipstick Normal (Normal); Ketone-Dipstick Negative (Negative); Leukocyte Esterase-Dipstick 100 /ul (Negative); Nitrite-Dipstick Negative (Negative); Occult Blood-Urine Negative /ul (Negative); Protein-Dipstick Negative (Negative); Urine Bilirubin Dipstick Negative (Negative); Urine Clarity Clear (Clear); Urine Urobilinogen Normal (Normal); Urine pH 6.5 (5.0 - 8.0)
[2020-03-14 16:10] LABS: Internal QC Validated? YES +Cl - CLEAR BKGD; Pregnancy, Urine Negative Negative
[2020-03-14 16:34] LABS: Squamous Epithelial Cells - UA 0-5 SEEN /hpf (5-10); Transitional Epithelial - Ur 0-5 SEEN /hpf (0-5); White Blood Cells 5-10 SEEN /hpf (0-5)
[2020-03-14 18:07] VITALS: BP 116/89; PULSE 62; RESP 16; O2SAT 99
== END 2020-03-14 18:09 | disposition home or self-care (01) ==
PROVIDERS: Emergency Provider Physician Assistant Medical
DX: N83.202 Unspecified ovarian cyst, left side (principal); Z87.891 Personal history of nicotine dependence
CPT/HCPCS: 74022; 74177; 80053; 81001; 81025; 83690; 85025; 96361; 96374; 96375; 99283; J7030; Q9967; J2405

== ENCOUNTER → 2021-04-28 14:00 | Outpatient (CLI) | payer OTHER, MEDICAID, SELFPAY | PROVIDERS: Visit Provider Obstetrics & Gynecology | DX: Z11.3 Encounter for screening for infections with a predominantly sexual mode of transmission (principal) ==

== ENCOUNTER → 2022-03-01 | Outpatient (CLI) | payer MEDICAID, SELFPAY ==
[2022-03-03 00:07] LABS: Chlamydia By Nucleic Acid AMP Negative (Negative)
[2022-03-03 16:26] LABS: Gonococcus By Nucleic Acid AMP Negative (Negative)
== END | disposition home or self-care (01) ==
LOC: LABSPEC 11:50
PROVIDERS: Visit Provider Obstetrics & Gynecology
DX: R30.0 Dysuria (principal); Z11.3 Encounter for screening for infections with a predominantly sexual mode of transmission
CPT/HCPCS: 87086; 87088; 87491; 87591

== ENCOUNTER 2023-04-22 22:01 | Emergency (ER) | payer MEDICAID, SELFPAY ==
[2023-04-22 22:03] VITALS: BP 109/69; PULSE 64; RESP 18; TEMP 35.9; O2SAT 100
--- NOTE | 2023-04-22 22:34 | EX.ED.DYSGE1 ---
HPI History of Present Illness Chief Complaint: General Illness Informant: patient Onset/Context/Timing Onset: Today and Hours (2) Context: Gradual Onset Timing: Continuous Quality: Sharp, aching Location: Diffuse abdominal pain Worsened by: Nothing Relieved by: Laying flat on her back with her legs up in the air Narrative Narrative: Patient presents with abdominal pain and back pain that began approximately 2 hours prior to arrival. Patient states it came on gradually. Patient states he has been constant for the past 2 hours. Patient describes it as sharp and aching. Patient states it is diffuse across her abdomen. Patient states it is better when she lays flat on her back and raises her legs in the air. Patient states nothing makes it worse. Patient denies any nausea or vomiting. Patient denies any diarrhea, melena, or hematochezia. Patient denies any fevers but admits to some subjective chills and hot flashes. Patient denies any urinary complaints. Patient states her last menstrual period was 2 days ago. [facility] Medical History 39 weeks gestation of delivery delivered Cholelithiasis Infection associated with retained intrauterine contraceptive device Home Medications ciprofloxacin HCl 500 mg tablet 500 mg PO BID #6 TABLETS 04/23/23 [Rx Last Taken Unknown] Allergy/AdvReac Type Severity Reaction Status Date / Time No Known Allergies Allergy Verified 04/22/23 22:03 Family History Grandfather Colon cancer Surgical History History of History of cholecystectomy (~01/2020) Social History Smoking Status: Former smoker alcohol intake: never substance use type: does not use ROS ROS ED Constitutional Constitutional ED: Reports chills and subjective; Denies fever(s) Eyes Eyes: Denies blurry vision or change in vision ENT ENT ED: Denies rhinorrhea or sore throat Cardiovascular Cardiovascular: Denies chest pain or palpitations Respiratory/Chest Respiratory/Chest: Denies cough or dyspnea Gastrointestinal Gastrointestinal: Reports abdominal pain; Denies diarrhea, melena, nausea or vomiting Genitourinary Genitourinary ED: Reports LMP (females 10-50) Details: Comment: (2 days ago); Denies dysuria or hematuria Musculoskeletal Musculoskeletal: Reports back pain; Denies neck pain Integumentary Denies abscess or rash Neurologic Neurologic: Denies headache(s) or weakness Allergic/Immunologic Allergic/Immunologic ED: Denies mouth swelling or urticaria EXAM Physical Exam Const Vital Signs: 04/22/23 22:03 04/22/23 22:15 Temperature 96.6 F L Temperature Source Temporal Pulse Rate 64 Respiratory Rate 18 Respiratory Effort Normal Respiratory Pattern Normal Blood Pressure 109/69 Blood Pressure Mean 82 Pulse Ox 100 Oxygen Delivery Method Room Air Positive well nourished and well developed General Appearance ED: well developed and NAD HEENT Reports moist mucous membranes Neck supple and no JVD Resp normal respiratory effort and clear to auscultation bilaterally Cardio regular rate, regular rhythm and no murmurs GI normal to inspection, nondistended, normoactive bowel sounds Palpation: soft and tender epigastric, LLQ, RLQ, LUQ, RUQ, periumbilical and suprapubic; Negative for guarding or rebound tenderness present Extremity normal to inspection General Extremety ED: Negative for edema or tenderness General Extremity: Negative for edema Neuro oriented x3, CN's II-XII intact bilaterally and no sensory deficits noted Sensorium / Orientation: alert Motor Exam: strength 5/5 throughout Psych mental status grossly normal Skin no rashes or lesions noted MDM MDM MDM Narrative Medical decision making narrative: Differential diagnosis includes gastroenteritis, pancreatitis, gastric ulcer, duodenal ulcer, gastroesophageal reflux disease, urinary tract infection, and pyelonephritis. CBC will be obtained to assess for leukocytosis and anemia. Comprehensive metabolic profile will be obtained to assess for hepatic function, renal function, and electrolyte abnormality. Lipase will be obtained to assess for pancreatitis. Urinalysis will be obtained to assess for urinary tract infection and hematuria. Lab Data Attestation: I reviewed the patient's lab results. Lab results narrative: CBC was reviewed and was within normal limits. Comprehensive metabolic profile was reviewed and was within normal limits. Serum hCG was reviewed and was negative. Lipase was reviewed and was normal at 37. Urinalysis was reviewed. Leukocyte esterase was 500. There were greater than 100 white blood cells. There is 2+ bacteria. Labs: Laboratory Results - last 24 hr 04/22/23 04/23/23 23:00 00:06 WBC 10.9 RBC 4.49 Hgb 13.5 Hct 41.9 MCV 93.3 MCH 30.1 MCHC 32.2 RDW Std Deviation 43.0 RDW Coeff of Christiano 12.5 Plt Count 284 MPV 10.1 Immature Gran % (Auto) 0.300 Neut % (Auto) 87.9 H Lymph % (Auto) 8.1 L Perry % (Auto) 2.8 Eos % (Auto) 0.6 Baso % (Auto) 0.3 Absolute Neuts (auto) 9.6 H Absolute Lymphs (auto) 0.88 Nucleated RBC % 0 Sodium 136 Potassium 3.9 Chloride 104 Carbon Dioxide 27.0 Anion Gap 5 BUN 13 Creatinine 1.00 Est GFR (MDRD) Af Amer 83 Est GFR (MDRD) Non-Af 69 BUN/Creatinine Ratio 13.0 Glucose 116 H Calcium 9.2 Total Bilirubin 0.30 AST 13 L ALT 17 Alkaline Phosphatase 70 Total Protein 7.5 Albumin 4.0 Globulin 3.5 Albumin/Globulin Ratio 1.1 Lipase 37 Serum , Qual NEGATIVE Urine Color Yellow Urine Clarity Clear Urine pH 5.0 Ur Specific Nephi 1.025 Urine Protein 30 H Urine Glucose (UA) Normal Urine Ketones 5 H Urine Occult Blood 10 H Urine Nitrite Negative Urine Bilirubin Negative Urine Urobilinogen 1 H Ur Leukocyte Esterase 500 H Urine RBC 0 SEEN Urine WBC >100 SEEN Ur Squamous Epith Cells 0 SEEN Urine Bacteria 2+ Urine Mucus 2+ Radiography Diagnostic Testing: Clinical Impression(s) from Imaging Studies Abdomen/Pelvis CT 04/23/23 00:36 IMPRESSION: Negative CT abdomen and pelvis without oral or IV contrast. Electronically Signed: Ruben Ballard MD at 1:50 EDT Reading Location ID and State: [facility] / [place] Tel , Service support , CT scan of the abdomen and pelvis was obtained. There is no free air or free fluid. There is no evidence of pyelonephritis. There is no ureteral calculus noted. This was interpreted by the radiologist was also independently reviewed by myself. Treatment and Re-Evaluation :: Patient was given IV fluids, morphine, and Zofran. Patient had minimal relief with the morphine. Patient was given a dose of Bentyl. Urine culture was obtained and is pending. Patient was given a dose of Rocephin. Patient was instructed to drink plenty of fluids. Patient was given a prescription for Cipro. Patient was instructed to take Tylenol or ibuprofen as needed for any pain or fever. Patient was instructed to follow-up with her primary care physician in 5 to 7 days. Patient understood and was agreeable with the plan. All questions were answered. Discharge Plan Triage Chief Complaint: General Illness ED Provider: Nico Mcpherson Dx/Rx/DC Orders Clinical Impression: Urinary tract infection, Abdominal pain Instructions: ED Cystitis Female Adult Prescriptions: New ciprofloxacin HCl [ciprofloxacin HCl] 500 mg tablet 500 mg PO BID Qty: 6 0RF Primary Care Provider: Care Physician,No Primary Referrals: Care Physician,No Primary [Primary Care Provider] - Disposition Disposition: Home, Self Care
[2023-04-22] MEDS: Ondansetron 4 MG/2 ML Vial IV (23:05)
[2023-04-22] MEDS: 0.9% Normal Saline 1,000 ML 1000 ML IV (23:05)
[2023-04-22] MEDS: Morphine 4 MG/ML Syringe IV (23:05)
[2023-04-22 23:07] LABS: Absolute Lymphocyte Count 0.88 X10^3/uL (0.83-4.51); Absolute Neutrophil Count 9.6 X10^3/uL (2.0-7.7); Basophil# 0.03 X10^3/uL; Basophil% 0.3 % (0-1); Eosinophil# 0.07 X10^3/uL; Eosinophils% 0.6 % (0-5); Hematocrit 41.9 % (37-47); Hemoglobin 13.5 g/dL (12.0-15.0); Lymphocyte # 0.88 X10^3/ul (0.83-4.51); Lymphocyte % 8.1 % (19-41); Mean Corp Hgb Conc 32.2 g/dL (32-36); Mean Corpuscular Hgb 30.1 pg (27.0-32.0); Mean Corpuscular Volume 93.3 fL (81-99); Mean Platelet Vol. 10.1 fl (6.2-12.0); Monocyte# 0.31 X10^3/uL; Monocyte% 2.8 % (0-10); NRBC Flagged by Analyzer 0 % (0-5); Neutrophil # 9.61 X10^3/uL (2.7-7.7); Neutrophil % 87.9 % (47-70); Platelet Count 284 K/mm3 (150-450); RBC Distribution Width CV 12.5 % (11.6-14.6); Red Blood Count 4.49 M/mm3 (4.2-5.4); White Blood Count 10.9 K/mm3 (4.4-11.0)
[2023-04-22 23:21] LABS: Internal QC Validated? YES +Cl - CLEAR BKGD; Pregnancy, Serum, hCG Quali. NEGATIVE Negative
[2023-04-22 23:23] LABS: ALB/GLOB Ratio 1.1 RATIO (0.9-2.4); AST(SGOT) 13 U/L (15-37); Alanine Aminotransfer ALT/SGPT 17 U/L (13-56); Alkaline Phosphatase 70 U/L (45-117); Anion Gap 5 (5-15); BUN 13 mg/dL (7-18); Calcium,Total 9.2 mg/dL (8.5-10.1); Chloride 104 mmol/L (98-107); EST Glomerular Filtration Rate 69 mL/min (>60); Est Glom Filt Rate - Afr Amer 83 mL/min (>60); Globulin 3.5 g/dL (2.2-4.2); Glucose 116 mg/dL (74-106); Lipase 37 U/L (13-75); Potassium 3.9 mmol/L (3.5-5.1); Protein, Total 7.5 g/dL (6.4-8.2); Sodium Level 136 mmol/L (136-145)
[2023-04-23 00:11] LABS: Red Blood Cells-Urine 0 SEEN /hpf (0-5); Squamous Epithelial Cells - UA 0 SEEN /hpf (5-10)
[2023-04-23] MEDS: Dicyclomine 20 MG/2 ML Vial IM (00:15)
[2023-04-23 00:17] VITALS: BMI 23.7
[2023-04-23 00:25] LABS: Color, Urine Yellow (Yellow); Glucose, Dipstick Normal (Normal); Ketone-Dipstick 5 mg/dl (Negative); Leukocyte Esterase-Dipstick 500 /ul (Negative); Nitrite-Dipstick Negative (Negative); Occult Blood-Urine 10 /ul (Negative); Protein-Dipstick 30 mg/dl (Negative); Specific Gravity, Urine 1.025 (1.002-1.030); Urine Bilirubin Dipstick Negative (Negative); Urine Clarity Clear (Clear); Urine Urobilinogen 1 mg/dl (Normal)
[2023-04-23 00:33] LABS: Bacteria 2+ /hpf (None Seen); Mucous, Urine 2+ /hpf (<or=2+); White Blood Cells >100 SEEN /hpf (0-5)
--- NOTE | 2023-04-23 00:36 | CT_ITS ---
INDICATION: Abdominal pain EXAMINATION: CT ABDOMEN AND PELVIS WITHOUT CONTRAST - CT Abdomen And Pelvis W/O Contrast Injection TECHNIQUE: Helically acquired images were obtained of the abdomen and pelvis without oral or IV contrast. A radiation dose optimization technique was used for this scan. IV Contrast dosage and agent: None. Oral contrast: None. RADIATION DOSAGE (If Supplied By Facility): CTDIvol = ( 5.92 ) mGy, DLP = ( 285.72 ) mGycm COMPARISON: Prior study dated: 03/14/2020 FINDINGS: LOWER CHEST: Basilar atelectasis bilaterally. No cardiomegaly or pericardial effusion. LIVER: Homogeneous. No focal mass. GALLBLADDER AND BILIARY TREE: The gallbladder is absent . No intra- or extrahepatic biliary ductal dilation. PANCREAS: No focal cystic or solid mass. SPLEEN: Normal size without focal cystic or solid mass. ADRENAL GLANDS: No nodules. KIDNEYS AND URETERS: Normal renal size and position. No hydronephrosis. PERITONEUM: No ascites or free air. No other fluid collection. BOWEL: The appendix is not clearly visualized. No inflammation in the region of the cecum to suggest acute appendicitis. No stomach or bowel distension. No focal inflammatory change. LYMPH NODES: No enlarged mesenteric or retroperitoneal lymph nodes. VESSELS: Aorta is non-dilated. URINARY BLADDER: Unremarkable. REPRODUCTIVE ORGANS: No pelvic masses. IUD in place. Small volume of free fluid in the pelvis which may be physiologic. ABDOMINAL WALL: No discrete abdominal or pelvic wall hernia. BONES: No lytic or blastic abnormality. CT/Abdomen/Pelvis without Cont IMPRESSION: Negative CT abdomen and pelvis without oral or IV contrast. Electronically Signed: Ruben Ballard MD at 1:50 EDT ,
[2023-04-23] MEDS: Ceftriaxone 1 GM/50 ML BAG IV (00:50)
[2023-04-23 02:34] VITALS: BP 105/63; PULSE 84; RESP 18; O2SAT 98
== END 2023-04-23 02:36 | disposition home or self-care (01) ==
PROVIDERS: Emergency Provider Emergency Medicine; Visit Provider Emergency Medicine
DX: N39.0 Urinary tract infection, site not specified (principal); R10.9 Unspecified abdominal pain; Z87.891 Personal history of nicotine dependence
CPT/HCPCS: 74176; 80053; 81001; 83690; 84703; 85025; 87086; 87088; 96361; 96365; 96366; 96372; 96375; 99283; J7030; A4216; J2405

== ENCOUNTER 2025-01-14 16:51 | Emergency (ER) | payer MEDICAID, SELFPAY ==
[2025-01-14 16:52] VITALS: BP 126/86; PULSE 72; RESP 18; TEMP 36.8; O2SAT 100; BMI 29.0
[2025-01-14 17:37] LABS: Absolute Lymphocyte Count 2.44 X10^3/uL (0.83-4.51); Absolute Neutrophil Count 5.7 X10^3/uL (2.0-7.7); Basophil# 0.08 X10^3/uL; Basophil% 0.9 % (0-1); Eosinophil# 0.34 X10^3/uL; Eosinophils% 3.7 % (0-5); Hematocrit 39.2 % (37-47); Lymphocyte # 2.44 X10^3/ul (0.83-4.51); Lymphocyte % 26.8 % (19-41); Mean Corp Hgb Conc 33.2 g/dL (32-36); Mean Corpuscular Hgb 29.9 pg (27.0-32.0); Mean Corpuscular Volume 90.1 fL (81-99); Mean Platelet Vol. 9.9 fl (6.2-12.0); Monocyte# 0.48 X10^3/uL; Monocyte% 5.3 % (0-10); NRBC Flagged by Analyzer 0 % (0-5); Neutrophil # 5.74 X10^3/uL (2.7-7.7); Neutrophil % 63.1 % (47-70); Platelet Count 329 K/mm3 (150-450); RBC Distribution Width CV 12.6 % (11.6-14.6); Red Blood Count 4.35 M/mm3 (4.2-5.4); White Blood Count 9.1 K/mm3 (4.4-11.0)
[2025-01-14 18:01] LABS: Internal QC Validated? YES +Cl - CLEAR BKGD; Pregnancy, Serum, hCG Quali. NEGATIVE Negative; Record Kit Lot#, Serum Preg. 947241
[2025-01-14 18:07] LABS: ALB/GLOB Ratio 1.6 RATIO (0.9-2.4); AST(SGOT) 29 U/L (<=31); Alanine Aminotransfer ALT/SGPT 22 U/L (<=34); Albumin, Serum 4.7 g/dL (3.5-5.0); Alkaline Phosphatase 77 U/L (35-104); Anion Gap 11 (5-15); BUN 7 mg/dL (4-19); BUN/Creat Ratio 7.1 RATIO (10-20); Calcium,Total 9.8 mg/dL (7.6-11.0); Chloride 103 mmol/L (98-108); Creatinine, Serum 0.98 mg/dL (0.70-1.20); EST Glomerular Filtration Rate 79 (>60); Estimated Creatinine Clearance 72.89 ml/min (50-250); Globulin 2.9 g/dL (2.2-4.2); Glucose 81 mg/dL (70-99); Lipase 115 U/L (13-75); Potassium 3.7 mmol/L (3.3-5.1); Protein, Total 7.6 g/dL (5.9-8.4); Sodium Level 140 mmol/L (133-145); Total Bilirubin 0.23 mg/dL (0.00-1.30)
[2025-01-14 18:51] VITALS: BP 119/81; PULSE 69; RESP 14; O2SAT 97
[2025-01-14 20:00] VITALS: BP 105/87; PULSE 72; O2SAT 98
[2025-01-14] MEDS: Dicyclomine 10 MG Capsule 20 MG PO (20:11)
--- NOTE | 2025-01-14 20:16 | CT_ITS ---
PROCEDURE: ABDOMEN/PELVIS W IV CONT ONLY 01/14/2025 REASON FOR EXAM: RLQ ABD PAIN TECHNIQUE: Abdomen and pelvis CT with intravenous contrast. Coronal and Sagittal reconstruction series were provided. PATIENT PREPARATION: Per protocol ORAL CONTRAST TYPE: None. AMOUNT: mL CONTRAST: Isovue 370 VOLUME: 100 mL ? Gauge IV One or more dose reduction techniques were used (e.g., Automated exposure control, adjustment of the mA and/or kV according to patient size, use of iterative reconstruction technique. RADIATION DOSE SUMMARY: CTDlvol: 13.3 mGy DLP: 566.118 mGycm FINDINGS: Lung bases: Liver: , Spleen, pancreas unremarkable. The kidneys are unremarkable. The gallbladder is surgically absent. There is no bowel obstruction, free fluid or free air. There is no abscess. There is an IUD within the uterus. There are no findings to suggest appendicitis or diverticulitis. CT/Abdomen/Pelvis W IV Cont ONLY IMPRESSION: No acute abnormality Reading Location: [facility]
--- NOTE | 2025-01-14 20:50 | EDS_ITS ---
HPI History of Present Illness Chief Complaint: Abd Pain Narrative Narrative: Patient is a 34-year-old female with no known significant past medical history who presented to the emergency department abdominal pain. Patient states that for the past week she has had abdominal pain off and on and states that its progressively worsened prompting her to come here for the evaluation management. Patient states that if she gets up and ambulates her pain significantly worsens and laying down she does not have much pain. Patient states that she did have her gallbladder removed but denies any other previous abdominal surgeries. Patient states that she has been having normal bowel movements PFSH PFSH Medical History Cholelithiasis delivery delivered 39 weeks gestation of Infection associated with retained intrauterine contraceptive device Home Medications ?Medication ?Instructions ?Recorded ?Last Taken ?Type ciprofloxacin HCl 500 mg tablet 500 mg PO BID #6 TABLE TS 04/23/23 Unknown Rx dicyclomine 20 mg tablet 20 mg PO TID #20 tabs Unknown Rx ondansetron 4 mg disintegrating 4 mg PO Q6H PRN nausea and 01/14/25 Unknown Rx tablet vomiting #20 tabs Allergy/AdvReac Type Severity Reaction Status Date / Time No Known Allergies Allergy Verified 01/14/25 16:52 Family History Grandfather Colon cancer Surgical History History of cholecystectomy (~01/2020) History of Social History household members: family housing: house Smoking Status: Former smoker alcohol intake: never substance use type: does not use ROS ROS ED ROS Narrative Constitutional: Denies fevers, chills, headaches Abdomen: Complains of abdominal pain as noted above denies nausea vomit diarrhea : Denies any urinary symptoms Neurological: Denies numbness, weakness, tingling Musculoskeletal: Denies back pain Skin: Denies rashes or lesions EXAM Physical Exam Narrative Exam Narrative: General: Patient lying in bed rest comfortably did not appear to be in acute distress Head: Atraumatic, normocephalic Eyes: PERRL bilaterally, EOMI bilaterally, no conjunctival injection noted Neck: Soft, supple, trachea midline Cardiovascular: Regular rate and rhythm Respiratory: Clear to auscultation bilaterally Abdomen: Soft, nondistended, tenderness to palpation midway between her right upper and right lower quadrant no rebound or guarding on exam Extremities: +5/5 strength noted in the bilateral upper and lower extremities, radial pulses +2/4 in the bilateral extremities Neurological: Patient following commands knew that she was at [facility] year is 2024 Skin: Warm, dry, intact no rashes or lesions noted Const Vital Signs: 01/14/25 16:52 01/14/25 18:51 01/14/25 20:00 Temperature 98.2 F Temperature Source Oral Pulse Rate 72 69 72 Respiratory Rate 18 14 Blood Pressure 126/86 H 119/81 H 105/87 H Blood Pressure Mean 99 93 93 Pulse Ox 100 97 98 Oxygen Delivery Method Room Air Room Air MDM MDM MDM Narrative Medical decision making narrative: Patient is a 34-year-old female who presented to the emergency department the chief complaint of abdominal pain. States that this been going off-and-on for the last week but progressively worsening prompting her here. On the differential diagnose includes but not limited to appendicitis, bowel obstruction, viral gastroenteritis, constipation. Once workup is obtained and reviewed she will be reevaluated. Patient be given IV fluids and Bentyl. Patient CBC reviewed and showed no evidence leukocytosis white blood count normal at 9.1, hemoglobin stable 13, plate count 329. Patient sodium normal 140, potassium of 3.7, creatinine normal at 0.98. Patient AST and ALT are 29 and 22 respectively, lipase elevated 115, test negative.Patient's CT abdomen pelvis with IV contrast showed no acute abnormality. On reevaluation of the patient she was feeling better she would like to go home at this point in time. Repeat abdominal exam 9:35 PM her abdomen remains benign with mild tenderness palpation between the right upper quadrant and right lower quadrant no rebound or guarding on exam no epigastric tenderness. Did discuss results with the patient and advised her to return with worsening symptoms or concerns. Should be given prescription for Bentyl and Zofran. She is agreeable this plan all question concerns answered she was discharged home in stable condition. Lab Data Labs: Laboratory Results - last 24 hr 01/14/25 17:22 WBC 9.1 RBC 4.35 Hgb 13.0 Hct 39.2 MCV 90.1 MCH 29.9 MCHC 33.2 RDW Std Deviation 42.0 RDW Coeff of Christiano 12.6 Plt Count 329 MPV 9.9 Immature Gran % (Auto) 0.200 Neut % (Auto) 63.1 Lymph % (Auto) 26.8 [place] % (Auto) 5.3 Eos % (Auto) 3.7 Baso % (Auto) 0.9 Absolute Neuts (auto) 5.7 Absolute Lymphs (auto) 2.44 Nucleated RBC % 0 Sodium 140 Potassium 3.7 Chloride 103 Carbon Dioxide 26.0 Anion Gap 11 BUN 7 Creatinine 0.98 Estim Creat Clear Calc 72.89 Est GFR (MDRD) Non-Af 79 BUN/Creatinine Ratio 7.1 L Glucose 81 Calcium 9.8 Total Bilirubin 0.23 AST 29 ALT 22 Alkaline Phosphatase 77 Total Protein 7.6 Albumin 4.7 Globulin 2.9 Albumin/Globulin Ratio 1.6 Lipase 115 H Serum , Qual NEGATIVE Radiography Diagnostic Testing: Clinical Impression(s) from Imaging Studies Abdomen/Pelvis CT 01/14/25 20:16 IMPRESSION: No acute abnormality Reading Location: [facility] Discharge Plan Triage Chief Complaint: Abd Pain ED Provider: Adam Jones Dx/Rx/DC Orders Clinical Impression: Abdominal pain Prescriptions: New dicyclomine 20 mg tablet 20 mg PO TID Qty: 20 0RF ondansetron 4 mg tablet,disintegrating 4 mg PO Q6H PRN (Reason: nausea and vomiting) Qty: 20 0RF No Action ciprofloxacin HCl [ciprofloxacin HCl] 500 mg tablet 500 mg PO BID Qty: 6 0RF Primary Care Provider: Care Physician,No Primary Referrals: Care Physician,No Primary [Primary Care Provider] - Daisha Yee Axel, DIRECTOR [employer] [[facility]] - Activity Restrictions/Additional Instructions: Your blood work largely did not show any acute findings. Your CT abdomen pelvis did not show any acute findings either. If you have worsening symptoms with persistent abdominal pain vomiting not tolerating oral intake, fevers or any other concerns return to the emergency department. Use prescriptions as prescribed. Follow-up with your primary care physician. Print Language: [place] Disposition Disposition: Home, Self Care
[2025-01-14 21:37] VITALS: BP 105/87; PULSE 72; RESP 16; TEMP 36.8; O2SAT 98
== END 2025-01-14 21:40 | disposition home or self-care (01) ==
PROVIDERS: Emergency Provider Emergency Medicine; Visit Provider Emergency Medicine
DX: R10.9 Unspecified abdominal pain (principal); Z90.49 Acquired absence of other specified parts of digestive tract; Z87.19 Personal history of other diseases of the digestive system; Z87.891 Personal history of nicotine dependence
CPT/HCPCS: 74177; 80053; 83690; 84703; 85025; 99282; Q9967; A4216